=== PATIENT | female | born 2000 | race Caucasian/White ===

== ENCOUNTER 2020-06-20 11:06 | Emergency (ER) | payer OTHER ==
[~2020-06-20] VITALS: Ht 152.4 cm; Wt 39.3 kg
[2020-06-20] MEDS ORDERED: MULTTAB20 PO (11:19)
[2020-06-20] MEDS ORDERED: ZOLO50TA PO (11:19)
[2020-06-20] MEDS ORDERED: ZOFR4TAB16 PO (12:00)
[2020-06-20] MEDS ORDERED: ONDANSETRON 4MG/2ML VIAL IV ONE (12:30)
[2020-06-20] MEDS ORDERED: NS 1,000 ML IV ONE (12:30)
[2020-06-20 12:51] LABS: BASO % 0.2 % (0.0-1.0); EOS % 0.4 % (0.0-3.0); HEMATOCRIT 39.6 % (36.0-47.0); LYMPH # 2.2 10^3/uL (1.5-5.0); MEAN CORPUSCULAR HEMOGLOBIN 30.4 pg (27.0-33.0); MEAN CORPUSCULAR HGB CONC 32.8 g/dl (32.0-36.5); MEAN CORPUSCULAR VOLUME 92.7 fl (80.0-96.0); MONO # 0.5 10^3/uL (0.0-0.8); MONO % 5.2 % (0.0-5.0); NEUTROPHILS # 6.3 10^3/uL (1.5-8.5); PLATELET COUNT, AUTOMATED 330 10^3/uL (150-450); RED BLOOD COUNT 4.27 10^6/uL (4.00-5.40)
[2020-06-20 12:55] LABS: APPEARANCE, URINE CLEAR (CLEAR); BACTERIA, URINE AUTO NEGATIVE (NEGATIVE); BILIRUBIN, URINE AUTO NEGATIVE (NEGATIVE); BLOOD, URINE BLOOD NEGATIVE (NEGATIVE); COLOR, URINE YELLOW (YELLOW); GLUCOSE, URINE (UA) AUTO NEGATIVE (NEGATIVE); KETONE, URINE AUTO 2+ mg/dL (NEGATIVE); LEUKOCYTE ESTERASE, URINE AUTO NEGATIVE (NEGATIVE); MUCUS, URINE SMALL (NEGATIVE); NITRITE, URINE AUTO NEGATIVE (NEGATIVE); PROTEIN, URINE AUTO NEGATIVE (NEGATIVE); RBC, URINE AUTO 1 /HPF (0-3); SPECIFIC GRAVITY URINE AUTO 1.026 (1.002-1.035); SQUAMOUS EPITHELIAL CELL UR AU 1 /HPF (0-6); UROBILINOGEN, URINE AUTO 0.2 mg/dL (0.0-2.0); WBC, URINE AUTO 0 /HPF (0-3)
[2020-06-20 13:35] LABS: ALBUMIN 4.5 GM/DL (3.2-5.2); ALT/SGPT 12 U/L (12-78); BILIRUBIN,DIRECT 0.2 MG/DL (0.0-0.2); BILIRUBIN,TOTAL 0.5 MG/DL (0.2-1.0); BLOOD UREA NITROGEN 13 MG/DL (7-18); CARBON DIOXIDE LEVEL 21 MEQ/L (21-32); CHLORIDE LEVEL 106 MEQ/L (98-107); CK-MB VALUE MASS < 1.0 NG/ML (<3.6); CPK CREATINE PHOSPHOKINASE 113 U/L (26-192); CREATININE FOR GFR 0.69 MG/DL (0.55-1.30); GLOMERULAR FILTRATION RATE > 60.0 (>60); GLUCOSE, FASTING 91 MG/DL (70-100); HCG, SERUM QUANTITATIVE 14901 MIU/ML; LIPASE 157 U/L (73-393); MB/CK RELATIVE INDEX 0.88 (< OR =4); POTASSIUM SERUM 3.9 MEQ/L (3.5-5.1); SODIUM LEVEL 137 MEQ/L (136-145); TOTAL PROTEIN 7.8 GM/DL (6.4-8.2); TROPONIN I < 0.02 NG/ML (< 0.10)
--- NOTE | 2020-06-20 15:08 | REP ---
INDICATION: n, v abdominal pain COMPARISON: None. TECHNIQUE: Transabdominal and transvaginal 1st trimester obstetrical ultrasound with color Doppler evaluation. FINDINGS: Gestational sac with yolk sac and pole identified. [place]-rump length of 2.7 mm corresponds to 5 weeks 6 days gestational age with no discernible cardiac activity. IMPRESSION: measuring at 5 weeks 6 days gestational age. No discernible cardiac activity noted. Differential diagnosis includes early as well as demise. Correlation with serial HCG levels and repeat ultrasound may be warranted. <Electronically signed by Syed Woodruff > 06/20/20 [id number]
[2020-06-20] MEDS ORDERED: DICL10TA PO (15:17)
[2020-06-20 15:42] VITALS: BP 96/54
--- NOTE | 2020-06-20 19:20 | ECGEPIP ---
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
== END 2020-06-20 15:55 | disposition home or self-care (01) ==
LOC: M ED 11:06
DX: O21.9 Vomiting of pregnancy, unspecified (principal); O99.341 Other mental disorders complicating pregnancy, first trimester; F41.9 Anxiety disorder, unspecified; O99.611 Diseases of the digestive system complicating pregnancy, first trimester; K21.9 Gastro-esophageal reflux disease without esophagitis; Z3A.01 Less than 8 weeks gestation of pregnancy; Z79.899 Other long term (current) drug therapy
CPT/HCPCS: 76801; 76817; 80048; 80076; 81001; 82550; 82553; 83690; 84484; 84702; 85025; 87086; 93005; 93976; 96361; 96374; 99284; J2405

== ENCOUNTER 2020-06-23 11:52 | Emergency (ER) | payer OTHER ==
[~2020-06-23] VITALS: Ht 152.4 cm; Wt 39.2 kg
[~2020-06-23 11:52] MED LIST: DICL10TA PO; MULTTAB20 PO; ZOFR4TAB16 PO; ZOLO50TA PO
[2020-06-23] MEDS ORDERED: NS 1,000 ML IV ONE (12:45)
[2020-06-23] MEDS ORDERED: METOCLOPRAMIDE INJ 10MG/2ML VIAL (J2765 PER 1) IV ONE (12:45)
[2020-06-23 13:56] LABS: BLOOD UREA NITROGEN 11 MG/DL (7-18); CARBON DIOXIDE LEVEL 22 MEQ/L (21-32); CHLORIDE LEVEL 106 MEQ/L (98-107); CREATININE FOR GFR 0.61 MG/DL (0.55-1.30); GLOMERULAR FILTRATION RATE > 60.0 (>60); GLUCOSE, FASTING 81 MG/DL (70-100); HCG, SERUM QUANTITATIVE 26797 MIU/ML; POTASSIUM SERUM 3.5 MEQ/L (3.5-5.1); SODIUM LEVEL 136 MEQ/L (136-145)
[2020-06-23] MEDS ORDERED: UNIS25TA3 PO (14:10)
[2020-06-23] MEDS ORDERED: PYRI25TA2 PO (14:10)
[2020-06-23 14:35] VITALS: BP 112/53
== END 2020-06-23 15:16 | disposition home or self-care (01) ==
LOC: M ED 11:52
DX: O21.9 Vomiting of pregnancy, unspecified (principal); O99.341 Other mental disorders complicating pregnancy, first trimester; F41.9 Anxiety disorder, unspecified; Z79.899 Other long term (current) drug therapy; Z3A.01 Less than 8 weeks gestation of pregnancy
CPT/HCPCS: 80048; 84702; 96361; 96374; 99284; J2765

== ENCOUNTER 2020-07-08 18:15 | Inpatient (IN) | payer OTHER ==
[~2020-07-08] VITALS: Ht 152.4 cm; Wt 40.0 kg
[2020-07-08] MEDS: KCL 10MEQ/100ML SWI (KRUN) 10 MEQ in IV 1 EA IV ONE (01:50)
[~2020-07-08 18:15] MED LIST changes: +PYRI25TA2 PO; +UNIS25TA3 PO
[2020-07-08] MEDS ORDERED: NS 1,000 ML IV ONE (19:00)
[2020-07-08] MEDS ORDERED: ONDANSETRON 4MG/2ML VIAL IV ONE (19:00)
[2020-07-08 19:08] LABS: BASO % 0.2 % (0.0-1.0); EOS % 0.1 % (0.0-3.0); HEMATOCRIT 36.8 % (36.0-47.0); HEMOGLOBIN 12.6 g/dl (12.0-15.5); MEAN CORPUSCULAR HEMOGLOBIN 30.9 pg (27.0-33.0); MEAN CORPUSCULAR HGB CONC 34.2 g/dl (32.0-36.5); MEAN CORPUSCULAR VOLUME 90.2 fl (80.0-96.0); MONO # 0.6 10^3/uL (0.0-0.8); MONO % 3.4 % (0.0-5.0); NEUTROPHILS # 14.3 10^3/uL (1.5-8.5); NEUTROPHILS % 83.8 % (36.0-66.0); PLATELET COUNT, AUTOMATED 364 10^3/uL (150-450); RED BLOOD COUNT 4.08 10^6/uL (4.00-5.40)
[2020-07-08 19:18] LABS: INR 1.04; PROTHROMBIN TIME 13.8 SECONDS (12.5-14.3)
[2020-07-08 19:19] LABS: PARTIAL THROMBOPLASTIN TIME 26.4 SECONDS (24.2-38.5)
[2020-07-08] MEDS ORDERED: MULTIVITAMIN -ADULT INJECTION 10 ML, THIAMINE INJection 100 MG, FOLIC ACID 1 MG in NS 1... IV ONE ×2 (19:30→21:00)
[2020-07-08] MEDS ORDERED: FAMOTIDINE INJ 20MG/2ML VIAL (S0028 PER 1) IVP ONE (19:30)
[2020-07-08] MEDS ORDERED: PREN29CH2 PO (19:39)
[2020-07-08] MEDS ORDERED: ONDA-83 PO (19:39)
[2020-07-08] MEDS ORDERED: UNIS25TA3 PO (19:39)
[2020-07-08] MEDS ORDERED: PYRI25TA2 PO (19:39)
[2020-07-08] MEDS ORDERED: SERT50TA29 PO (19:39)
[2020-07-08] MEDS ORDERED: FAMOTIDINE IV BAG 20 MG in IV 1 EA IV ONE (19:45)
[2020-07-08 19:55] LABS: ALBUMIN 4.6 GM/DL (3.2-5.2); ALT/SGPT 35 U/L (12-78); BILIRUBIN,DIRECT 0.2 MG/DL (0.0-0.2); BILIRUBIN,TOTAL 0.5 MG/DL (0.2-1.0); BLOOD UREA NITROGEN 14 MG/DL (7-18); CALCIUM LEVEL 10.2 MG/DL (8.5-10.1); CARBON DIOXIDE LEVEL 19 MEQ/L (21-32); CHLORIDE LEVEL 105 MEQ/L (98-107); CK-MB VALUE MASS 1.2 NG/ML (<3.6); CPK CREATINE PHOSPHOKINASE 91 U/L (26-192); CREATININE FOR GFR 0.81 MG/DL (0.55-1.30); GLOMERULAR FILTRATION RATE > 60.0 (>60); GLUCOSE, FASTING 117 MG/DL (70-100); HCG, SERUM QUANTITATIVE 154907 MIU/ML; LIPASE 156 U/L (73-393); MB/CK RELATIVE INDEX 1.32 (< OR =4); POTASSIUM SERUM 3.4 MEQ/L (3.5-5.1); SODIUM LEVEL 137 MEQ/L (136-145); TOTAL PROTEIN 8.4 GM/DL (6.4-8.2); TROPONIN I < 0.02 NG/ML (< 0.10)
[2020-07-08 20:52] LABS: APPEARANCE, URINE HAZY (CLEAR); BACTERIA, URINE AUTO 1+ (NEGATIVE); BILIRUBIN, URINE AUTO NEGATIVE (NEGATIVE); BLOOD, URINE BLOOD NEGATIVE (NEGATIVE); COLOR, URINE YELLOW (YELLOW); GLUCOSE, URINE (UA) AUTO 1+ mg/dL (NEGATIVE); KETONE, URINE AUTO 2+ mg/dL (NEGATIVE); LEUKOCYTE ESTERASE, URINE AUTO NEGATIVE (NEGATIVE); MUCUS, URINE SMALL (NEGATIVE); NITRITE, URINE AUTO NEGATIVE (NEGATIVE); PROTEIN, URINE AUTO 1+ mg/dL (NEGATIVE); RBC, URINE AUTO 3 /HPF (0-3); SPECIFIC GRAVITY URINE AUTO 1.024 (1.002-1.035); SQUAMOUS EPITHELIAL CELL UR AU 2 /HPF (0-6); UROBILINOGEN, URINE AUTO 0.2 mg/dL (0.0-2.0); WBC, URINE AUTO 1 /HPF (0-3)
[2020-07-08 21:13] LABS: AMPHETAMINES LEVEL URINE NEGATIVE (NEGATIVE); BARBITURATES URINE NEGATIVE (NEGATIVE); BENZODIAZEPINES URINE NEGATIVE (NEGATIVE); CANNABINOIDS URINE POSITIVE (NEGATIVE); COCAINE METABOLITE URINE NEGATIVE (NEGATIVE); METHADONE URINE NEGATIVE (NEGATIVE); OPIATES URINE NEGATIVE (NEGATIVE); PHENCYCLIDINE URINE NEGATIVE (NEGATIVE)
--- NOTE | 2020-07-08 21:24 | REPVR ---
PROCEDURE INFORMATION: Exam: US First Trimester, Transabdominal Exam date and time: 07/08/20 (8:04pm) Age: 20 years old Clinical indication: female. Nausea, vomiting, pain, cramping. Gestational age (in weeks): 8 weeks. TECHNIQUE: Imaging protocol: Real-time transabdominal obstetrical ultrasound of the maternal pelvis and a first trimester , less than 14 weeks 0 days, with image documentation. COMPARISON: US OB of 06/20/20 FINDINGS: The LMP is reported to be: 05/12/20 An early live intrauterine gestation is identified, approx. 8 weeks 3 days gestational age, based on the crown-rump length (CRL = 19 mm). Based on the CRL measurement, the GINO = 02[birth year]14/21. Close correlation with the menstrual history is noted. Appropriate interval growth is seen over the past 3 weeks. heart rate is recorded at 169 bpm. A yolk sac is visualized. The maternal right ovary measures 2.8 x 2.0 x 1.8 cm in dimensions. Simple right ovarian cyst (1.3 x 2.3 x 1.7 cm size) (1.8 cm avg. size). The left ovary is not clearly identified. No free pelvic fluid is appreciated. No solid adnexal mass. IMPRESSION: A single live IUP is seen, at 8 weeks 3 days gestational age (based on the CRL). heartbeat is recorded. Appropriate interval growth has occurred over the past 3 weeks. Right ovarian cyst (1.8 cm avg. size). The left ovary is not clearly visualized. No free pelvic fluid is noted. Electronically signed by: Caroline Monaco On 07/08/2020 21:23:41 PM
[2020-07-08 21:40] LABS: MAGNESIUM LEVEL 1.8 MG/DL (1.8-2.4)
--- NOTE | 2020-07-08 21:42 | HPEPDOC ---
[facility] Medical History & Physical Date of Admission Jul 08, 2020 Date of Service: Jul 08, 2020 Other Provider Leo DEL ANGEL History and Physical TIME OF SERVICE: 9:45 PM CHIEF COMPLAINT: Vomiting HISTORY OF PRESENT ILLNESS: This 20-year-old G2 A1 P1 (8 weeks 2 days), has been having episodes of nausea for the last few weeks that usually resolves as the day goes on. This morning at around 5:30 AM she developed nausea along with vomiting that continued throughout the day. At around 6 PM she developed streaks of blood in the vomit; as time progressed the vomit became dark brown in color. She was unable to keep any liquids, solids and even her SL Zofran down therefore she decided to come to also for evaluation. She reported having chills and upper abdominal and mid chest pain that occurred during and after vomiting. Yesterday evening she had one episode of "diarrhea" when she went to the bathroom and reported having another episode this morning. She denied having fecal incontinence. Denied having fevers, denied eating food that should not cooked, denied having change in the small bowel or the color of her urine, and denied having any pain with urination. JUAN Jiménez discussed the patient's case with OB carbon grinder and who recommended admission under the general medicine service. REVIEW OF SYSTEMS: 12 point review of systems negative except as listed in HPI PAST MEDICAL/ SURGICAL HISTORY: D&C 2 months ago after miscarriage. Anxiety SOCIAL HISTORY: She doesn't smoke. She quit drinking when she found that she was . Quit using THC about 2 weeks ago FAMILY HISTORY: Her father has pancreatitis. Her sister has anxiety ALLERGIES: Please see below. HOME MEDICATIONS: Please see below. PHYSICAL EXAMINATION: VITAL SIGNS: Please see below. GEN: slim build/ well developed/ NAD INTEGUMENT: not flushed/ not jaundice HEENT: lips acyanotic /mucus membranes moist and pink / sclera anicteric CVS: RRR/NMRG/ radial pulses intact / no lower extremity edema LUNGS: able to speak full sentences without stopping to take a breath / no coughing / lungs are clear to auscultation bilaterally on room air ABDOMEN: Contour (flat) / soft & not tender with palpation MSK/EXTREMITIES: NCAT / range of motion intact in all 4 extremities NEURO: CN 2-12 are grossly intact / speech is not dysarthric PSYCH: alert and oriented to person place and time/ able to understand and follow all commands LABORATORY DATA: Laboratory Tests 2 07/08/20 18:51: Immature Granulocyte % (Auto) 0.5, Neutrophils (%) (Auto) 83.8H, Lymphocytes (%) (Auto) 12.0L, Monocytes (%) (Auto) 3.4, Eosinophils (%) (Auto) 0.1, Basophils (%) (Auto) 0.2, Neutrophils # (Auto) 14.3H, Lymphocytes # (Auto) 2.0, Monocytes # (Auto) 0.6, Eosinophils # (Auto) 0.0, Basophils # (Auto) 0.0, Nucleated Red Blood Cells % (auto) 0.0, Prothrombin Time 13.8, Prothromb Time International Ratio 1.04, Activated Partial Thromboplast Time 26.4, Anion Gap 13, Glomerular Filtration Rate > 60.0, Calcium Level 10.2H, Total Bilirubin 0.5, Direct Bilirubin 0.2, Aspartate Amino Transf (AST/SGOT) 22, Alanine Aminotransferase (ALT/SGPT) 35, Alkaline Phosphatase 39L, Total Creatine Kinase 91, Creatine Kinase MB 1.2, Creatine Kinase MB Relative Index 1.32, Troponin I < 0.02, Total Protein 8.4H, Albumin 4.6, Albumin/Globulin Ratio 1.2, Lipase 156, Human Chorionic Gonadotropin, Quant [id number] 07/08/20 20:35: Urine Color YELLOW, Urine Appearance HAZY, Urine pH 6.0, Urine Specific [place] 1.024, Urine Protein 1+H, Urine Glucose (Auto)(UA) 1+H, Urine Ketones (Auto) 2+H, Urine Blood NEGATIVE, Urine Nitrite NEGATIVE, Urine Bilirubin NEGATIVE, Urine Urobilinogen 0.2, Urine Leukocyte Esterase (Auto) NEGATIVE, Urine WBC (Auto) 1, Urine RBC (Auto) 3, Urine Hyaline Casts (Auto) 0, Urine Bacteria (Auto) 1+H, Urine Squamous Epithelial Cells 2, Urine Mucus (Auto) SMALL, Urine Sperm (Auto) , Urine Opiates Screen NEGATIVE, Urine Methadone Screen NEGATIVE, Urine Barbiturates Screen NEGATIVE, Urine Phencyclidine Screen NEGATIVE, Urine Amphetamines Screen NEGATIVE, Urine Benzodiazepines Screen NEGATIVE, Urine Cocaine Metabolite Screen NEGATIVE, Urine Cannabinoids Screen POSITIVEH 07/08/20 20:36: Coronavirus (COVID-19)(PCR) NEGATIVE IMAGING: Transabdominal US "IMPRESSION: A single live IUP is seen, at 8 weeks 3 days gestational age (based on the CRL). heartbeat is recorded. Appropriate interval growth has occurred over the past 3 weeks. Right ovarian cyst (1.8 cm avg. size). The left ovary is not clearly visualized. No free pelvic fluid is noted." MICROBIOLOGY: Please see below. ASSESSMENT: is a 20-year-old G2, P2 with history of anxiety who presented w c/o of n/v and loose stools; she will be admitted for evaluation of hematemesis. PLAN: 1. Hematemesis N/V likely bc she is . With the presence of loose stools, it is also possible that she has a viral infection. Hematemesis possibly 2/2 small Natalia Blas tear A Banana bag was ordered in the ER Plan: admit to medical floor/ CLD / will avoid Zofran and PPI because she is / start Ondansetron 2mg IV Q4H/ f/u serial Hg / will ask the day time team to consult to determine if she needs EGD 2. Hypokalemia Plan: replete K & f/u Mag 3. Anxiety Plan: c/w home meds DVT px w SCDs Dispo: home after at least 2 midnight's stay LATE ENTRY 07/09/20 @ 440AM The patient's Hg has dropped significantly #Acute blood loss anemia Plan: f/u iron studies / per d/w will f/u Hg at noon and ask the day time team to consider Gen Surg consult if it is still trending down Home Medications Scheduled No115/Iron/Folic Acid ( 19 Chewable Tablet) 1 Each Tab.chew, 1 CHW PO QHS Sertraline HCl (Sertraline HCl) 50 Mg Tablet, 50 MG PO QHS Scheduled PRN Doxylamine Succinate (Unisom Sleep Aid) 25 Mg Tablet, 12.5 MG PO BID PRN for NAUSEA OR VOMITING Ondansetron HCl (Ondansetron HCl) 4 Mg Tablet, 4 MG PO Q6H PRN for NAUSEA OR VOMITING Pyridoxine HCl (Vitamin B6) (Vitamin B-6) 25 Mg Tablet, 12.5 MG PO BID PRN for NAUSEA OR VOMITING Allergies Coded Allergies: No Known Allergies (Unverified , 06/20/20) A-FIB/CHADSVASC A-FIB History Current/History of A-Fib/PAF?: No Current PO Anticoag Therapy: No ELISE MENDOZA MD Jul 08, 2020 21:42
[2020-07-08 23:42] LABS: CK-MB VALUE MASS < 1.0 NG/ML (<3.6); CPK CREATINE PHOSPHOKINASE 91 U/L (26-192); TROPONIN I < 0.02 NG/ML (< 0.10)
[2020-07-09 00:22] LABS: HEMATOCRIT 30.5 % (36.0-47.0)
[2020-07-09 00:29] VITALS: BP 100/54
[2020-07-09 00:30] LABS: HEMOGLOBIN 10.5 g/dl (12.0-15.5)
[2020-07-09] MEDS: KCL 10MEQ/100ML SWI (KRUN) 10 MEQ in IV 1 EA IV ONE (01:00)
[2020-07-09] MEDS: SERTRALINE HCL 50 MG TAB PO SCH ×2 (01:02→20:44)
[2020-07-09] MEDS: ONDANSETRON 4MG/2ML VIAL IV PRN ×2 (03:39→09:20)
[2020-07-09 04:00] VITALS: BP 109/60
[2020-07-09 04:36] LABS: HEMATOCRIT 31.3 % (36.0-47.0); HEMOGLOBIN 10.5 g/dl (12.0-15.5); MEAN CORPUSCULAR HEMOGLOBIN 31.2 pg (27.0-33.0); MEAN CORPUSCULAR HGB CONC 33.5 g/dl (32.0-36.5); MEAN CORPUSCULAR VOLUME 92.9 fl (80.0-96.0); PLATELET COUNT, AUTOMATED 283 10^3/uL (150-450); RED BLOOD COUNT 3.37 10^6/uL (4.00-5.40); WHITE BLOOD COUNT 14.6 10^3/uL (4.0-10.0)
[2020-07-09 05:11] LABS: BLOOD UREA NITROGEN 11 MG/DL (7-18); CALCIUM LEVEL 7.8 MG/DL (8.5-10.1); CARBON DIOXIDE LEVEL 20 MEQ/L (21-32); CHLORIDE LEVEL 108 MEQ/L (98-107); CREATININE FOR GFR 0.46 MG/DL (0.55-1.30); FERRITIN 85 NG/ML (8-252); GLOMERULAR FILTRATION RATE > 60.0 (>60); GLUCOSE, FASTING 85 MG/DL (70-100); IRON (FE) 76 UG/DL (50-170); POTASSIUM SERUM 3.8 MEQ/L (3.5-5.1); SODIUM LEVEL 140 MEQ/L (136-145); TOTAL IRON BINDING CAPACITY 245 UG/DL (250-450)
--- NOTE | 2020-07-09 07:58 | ECGEPIP ---
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
[2020-07-09 08:00] VITALS: BP 101/63
[2020-07-09] MEDS ORDERED: FAMOTIDINE 20 MG TAB PO SCH (09:00)
[2020-07-09] MEDS ORDERED: ACETAMINOPHEN TAB 650MG DOSE (2X325MG) PO PRN (09:00)
[2020-07-09] MEDS ORDERED: CALCIUM CARBONATE 500 MG CHEW U/D PO PRN (10:15)
[2020-07-09 10:28] LABS: FOLATE > 24.0 NG/ML (>5.4); VITAMIN B12 LEVEL 825 PG/ML (247-911)
[2020-07-09] MEDS ORDERED: ONDANSETRON 4MG/2ML VIAL IV PRN (10:30)
--- NOTE | 2020-07-09 10:50 | CR.PDOC ---
General Date of Consultation: Jul 09, 2020 Consultation OBGYN Consultation Sharon Saez is a 20 yo at 8+1 weeks gestation by LMP of 12May2020 c/w 8 week US who was admitted by the hospitalist service yesterday evening for PO intolerance and blood streaked emesis. Initially there was concern for a potential Natalia-Blas tear, but her bloody vomitus has not continued and she has remained hemodynamically stable. She reports having nausea and vomiting throughout her entire . She has taken doxylamine and pyridoxine with only mild relief of symptoms. She came to the hospital yesterday because she was unable to tolerate solids or liquids for the preceding 24 hours. This morning she reports still feeling nauseous but otherwise well. She denies any fevers/chills, SOB, chest pain, dysuria, vaginal bleeding, or diarrhea. Her last episode of emesis was last night. OBHX: , G1- SAB requiring D+C, G2 - current GYNHX: Regular menstrual cycles when not . No STD or abnormal pap history. PMHX: Depression/Anxiety PSHX: Suction dilation and curettage Meds: Sertraline, PNVs, Doxylamine, Pyridoxine Social: Denies current tobacco or etoh use. Stopped etoh use when discovered she was . Reports she recently quit using marijuana. All: None FamHx: Non contributory Exam: Vitals - VSS, afebrile, normotensive, non tachycardic General - Laying in bed, pleasant and conversant, NAD Abdomen - Soft, nondistended. Mild diffuse tenderness to palpation Extremities - No edema Labs: 2+ ketones on UA, UC pending Initial WBC 17 --> Most recent 14.6 Most recent H/H: 10.5/31.3. Platelets normal 140/3.8--108/20--11/0.46<85 AST/ALT: 22/35 Calcium: 7.8 Rads: Formal first trimester US demonstrated a viable SIUP at ~8 weeks gestation. GINO c/w LMP dating. A/P 20 yo at 8+1 weeks gestation admitted with bloody emesis in the setting of persistent n/v and PO intolerance. -Diagnosis of hyperemesis gravidarum is likely, though this is most strictly defined as a >5% loss of weight compared to pre weight in the setting of electrolyte abnormalities and persistent n/v not attributable to any other cause. -Bloody emesis has resolved, and there doesn't appear to be any need for acute intervention. Though this will need to closely monitored. -Would recommend NPO status and scheduled IV and LA antiemetics. Scheduled IV ondansetron, IV reglan, and LA promethazine have good efficacy. In refractory cases a scopolamine patch can be considered. -Ms. Saez is amenable to rectal promethazine suppositories and I would encourage this. -Would recommend obtaining daily electrolyte levels with replacement of K and Mag as needed. Until she is PO tolerant I would continue IV maintenance fluids. -Dispo is pending advancement of diet. I would not transition to clear liquids until she hasn't vomited for >12 hours. Once she is tolerating a regular diet she can be discharged home with close follow up in our office. -Appreciate the consultation. Roderick Love, DO Vital Signs/I&O Vital Signs Date Time Temp Pulse Resp B/P (MAP) Pulse Ox O2 Delivery O2 Flow Rate FiO2 07/09/20 08:00 98.6 63 18 101/63 (76) 98 Room Air I&O- Last 24 Hours up to 6 AM 07/09/20 06:00 Intake Total 2011.2 ml Output Total 0 ml Balance 2011.2 ml Laboratory Data Labs 24H Laboratory Tests 2 07/08/20 18:51: Immature Granulocyte % (Auto) 0.5, Neutrophils (%) (Auto) 83.8H, Lymphocytes (%) (Auto) 12.0L, Monocytes (%) (Auto) 3.4, Eosinophils (%) (Auto) 0.1, Basophils (%) (Auto) 0.2, Neutrophils # (Auto) 14.3H, Lymphocytes # (Auto) 2.0, Monocytes # (Auto) 0.6, Eosinophils # (Auto) 0.0, Basophils # (Auto) 0.0, Nucleated Red Blood Cells % (auto) 0.0, Prothrombin Time 13.8, Prothromb Time International Ratio 1.04, Activated Partial Thromboplast Time 26.4, Anion Gap 13, Glomerular Filtration Rate > 60.0, Calcium Level 10.2H, Magnesium Level 1.8, Total Bilirubin 0.5, Direct Bilirubin 0.2, Aspartate Amino Transf (AST/SGOT) 22, Alanine Aminotransferase (ALT/SGPT) 35, Alkaline Phosphatase 39L, Total Creatine Kinase 91, Creatine Kinase MB 1.2, Creatine Kinase MB Relative Index 1.32, Troponin I < 0.02, Total Protein 8.4H, Albumin 4.6, Albumin/Globulin Ratio 1.2, Lipase 156, Human Chorionic Gonadotropin, Quant [id number] 07/08/20 20:35: Urine Color YELLOW, Urine Appearance HAZY, Urine pH 6.0, Urine Specific [place] 1.024, Urine Protein 1+H, Urine Glucose (Auto)(UA) 1+H, Urine Ketones (Auto) 2+H, Urine Blood NEGATIVE, Urine Nitrite NEGATIVE, Urine Bilirubin NEGATIVE, Urine Urobilinogen 0.2, Urine Leukocyte Esterase (Auto) NEGATIVE, Urine WBC (Auto) 1, Urine RBC (Auto) 3, Urine Hyaline Casts (Auto) 0, Urine Bacteria (Auto) 1+H, Urine Squamous Epithelial Cells 2, Urine Mucus (Auto) SMALL, Urine Sperm (Auto) , Urine Opiates Screen NEGATIVE, Urine Methadone Screen NEGATIVE, Urine Barbiturates Screen NEGATIVE, Urine Phencyclidine Screen NEGATIVE, Urine Amphetamines Screen NEGATIVE, Urine Benzodiazepines Screen NEGATIVE, Urine Cocaine Metabolite Screen NEGATIVE, Urine Cannabinoids Screen POSITIVEH 07/08/20 20:36: Coronavirus (COVID-19)(PCR) NEGATIVE 07/08/20 22:58: Total Creatine Kinase 91, Creatine Kinase MB < 1.0, Creatine Kinase MB Relative Index 1.10, Troponin I < 0.02 07/09/20 04:14: Nucleated Red Blood Cells % (auto) 0.0, Anion Gap 12, Glomerular Filtration Rate > 60.0, Calcium Level 7.8#L, Iron Level 76, Total Iron Binding Capacity 245L, Transferrin % Saturation 31.0, Ferritin 85, Vitamin B12 Level 825, Folate > 24.0 CBC/BMP Laboratory Tests 07/08/20 18:51 07/09/20 00:12 07/09/20 04:14 Microbiology Microbiology 07/08/20 Urine Culture, Received Pending Allergies Coded Allergies: No Known Allergies (Unverified , 06/20/20) Home Medications Scheduled No115/Iron/Folic Acid ( 19 Chewable Tablet) 1 Each Tab.chew, 1 CHW PO QHS, (Reported) Sertraline HCl (Sertraline HCl) 50 Mg Tablet, 50 MG PO QHS, (Reported) Scheduled PRN Doxylamine Succinate (Unisom Sleep Aid) 25 Mg Tablet, 12.5 MG PO BID PRN for NAUSEA OR VOMITING, (Reported) Ondansetron HCl (Ondansetron HCl) 4 Mg Tablet, 4 MG PO Q6H PRN for NAUSEA OR VOMITING, (Reported) Pyridoxine HCl (Vitamin B6) (Vitamin B-6) 25 Mg Tablet, 12.5 MG PO BID PRN for NAUSEA OR VOMITING, (Reported) RODERICK LOVE DO Jul 09, 2020 10:50
[2020-07-09 12:00] VITALS: BP 106/53
[2020-07-09 12:18] LABS: HEMATOCRIT 31.6 % (36.0-47.0); HEMOGLOBIN 10.7 g/dl (12.0-15.5)
[2020-07-09] MEDS: METOCLOPRAMIDE INJ 10MG/2ML VIAL (J2765 PER 1) IV SCH ×2 (12:35→18:09)
[2020-07-09] MEDS: NS 1,000 ML IV SCH (12:36)
[2020-07-09] MEDS: FAMOTIDINE IV BAG 20 MG in IV 1 EA IV SCH (12:36)
--- NOTE | 2020-07-09 15:25 | IPNPDOC ---
Date Seen The patient was seen on 07/09/20. Progress Note SUBJECTIVE: Discussed case with Dr. Love (document processor) who consulted and made suggestions. Patient continues to have nausea so stopped CLD and made NPO until patient has not had vomiting for >12H. She denies any bleeding, lightheadedness, vision changes, headache, increased weakness. OBJECTIVE: PHYSICAL EXAMINATION: VITAL SIGNS: Please see below. GEN: slim build/ well developed/ NAD INTEGUMENT: not flushed/ not jaundice HEENT: lips acyanotic /mucus membranes moist and pink / sclera anicteric CVS: RRR/NMRG/ radial pulses intact / no lower extremity edema LUNGS: able to speak full sentences without stopping to take a breath / no coughing / lungs are clear to auscultation bilaterally on room air ABDOMEN: Contour (flat) / soft & not tender with palpation MSK/EXTREMITIES: NCAT / range of motion intact in all 4 extremities NEURO: CN 2-12 are grossly intact / speech is not dysarthric PSYCH: alert and oriented to person place and time/ able to understand and follow all commands LABORATORY DATA: Please see below IMAGING: Transabdominal US: A single live IUP is seen, at 8 weeks 3 days gestational age (based on the CRL). heartbeat is recorded. Appropriate interval growth has occurred over the past 3 weeks. Right ovarian cyst (1.8 cm avg. size). The left ovary is not clearly visualized. No free pelvic fluid is noted." MICROBIOLOGY: Please see below. ASSESSMENT: is a 20-year-old G2, P2 with history of anxiety who presented w c/o of n/v and loose stools who was admitted for evaluation of hematemesis. PLAN: Hematemesis likely 2/2 to hyperemesis gravidarum -No longer having bloody emesis and is unlikely that this was 2/2 to Natalia Barry tear. -H/H is stable, continue to watch closely -Changing back to NPO from CLD per Ob recommendations. When vomiting resolved for >12 H, then advance towards a regular diet -Will c/w IVFs at 100 cc/hr, reglan TID, zofran PRN. Can consider scopalamine patch or rectal promethazine. -Replace lytes PRN -cyber operator consulted, please refer to note Acute blood loss anemia -No episodes of bleeding overnight -H/H dropped from admission; however, this could be dilutional as well -H/H steady throughout today -F/u H/H as scheduled -Transfuse PRN Hypokalemia, acute- resolved -F/u AM labs Anxiety -Stable -c/w home meds DVT px: - SCDs DISPOSITION: Advance diet as tolerated with n/v. Will need close follow up with document processor after discharge. VS, I&O, 24H, Fishbone Vital Signs/I&O Vital Signs Date Time Temp Pulse Resp B/P (MAP) Pulse Ox O2 Delivery O2 Flow Rate FiO2 07/09/20 12:00 98.7 60 18 106/53 (70) 100 Room Air I&O- Last 24 Hours up to 6 AM 07/09/20 06:00 Intake Total 2011.2 ml Output Total 0 ml Balance 2011.2 ml Laboratory Data 24H LABS Laboratory Tests 2 07/08/20 18:51: Immature Granulocyte % (Auto) 0.5, Neutrophils (%) (Auto) 83.8H, Lymphocytes (%) (Auto) 12.0L, Monocytes (%) (Auto) 3.4, Eosinophils (%) (Auto) 0.1, Basophils (% ) (Auto) 0.2, Neutrophils # (Auto) 14.3H, Lymphocytes # (Auto) 2.0, Monocytes # (Auto) 0.6, Eosinophils # (Auto) 0.0, Basophils # (Auto) 0.0, Nucleated Red Blood Cells % (auto) 0.0, Prothrombin Time 13.8, Prothromb Time International Ratio 1.04, Activated Partial Thromboplast Time 26.4, Anion Gap 13, Glomerular Filtration Rate > 60.0, Calcium Level 10.2H, Magnesium Level 1.8, Total Bilirubin 0.5, Direct Bilirubin 0.2, Aspartate Amino Transf (AST/SGOT) 22, Alanine Aminotransferase (ALT/SGPT) 35, Alkaline Phosphatase 39L, Total Creatine Kinase 91, Creatine Kinase MB 1.2, Creatine Kinase MB Relative Index 1.32, Troponin I < 0.02, Total Protein 8.4H, Albumin 4.6, Albumin/Globulin Ratio 1.2, Lipase 156, Human Chorionic Gonadotropin, Quant [id number] 07/08/20 20:35: Urine Color YELLOW, Urine Appearance HAZY, Urine pH 6.0, Urine Specific [place] 1.024, Urine Protein 1+H, Urine Glucose (Auto)(UA) 1+H, Urine Ketones (Auto) 2+H, Urine Blood NEGATIVE, Urine Nitrite NEGATIVE, Urine Bilirubin NEGATIVE, Urine Urobilinogen 0.2, Urine Leukocyte Esterase (Auto) NEGATIVE, Urine WBC ( Auto) 1, Urine RBC (Auto) 3, Urine Hyaline Casts (Auto) 0, Urine Bacteria (Auto) 1+H, Urine Squamous Epithelial Cells 2, Urine Mucus (Auto) SMALL, Urine Sperm (Auto) , Urine Opiates Screen NEGATIVE, Urine Methadone Screen NEGATIVE, Urine Barbiturates Screen NEGATIVE, Urine Phencyclidine Screen NEGATIVE, Urine Amphetamines Screen NEGATIVE, Urine Benzodiazepines Screen NEGATIVE, Urine Cocaine Metabolite Screen NEGATIVE, Urine Cannabinoids Screen POSITIVEH 07/08/20 20:36: Coronavirus (COVID-19)(PCR) NEGATIVE 07/08/20 22:58: Total Creatine Kinase 91, Creatine Kinase MB < 1.0, Creatine Kinase MB Relative Index 1.10, Troponin I < 0.02 07/09/20 04:14: Nucleated Red Blood Cells % (auto) 0.0, Anion Gap 12, Glomerular Filtration Rate > 60.0, Calcium Level 7.8#L, Iron Level 76, Total Iron Binding Capacity 245L, Transferrin % Saturation 31.0, Ferritin 85, Vitamin B12 Level 825, Folate > 24.0 CBC/BMP Laboratory Tests 07/08/20 18:51 07/09/20 00:12 07/09/20 04:14 07/09/20 11:56 Microbiology Microbiology 07/08/20 Urine Culture, Received Pending Current Medications Current Medications Medications (Trade) Dose Ordered Sig/Adi Route PRN Reason Start Time Stop Time Status Last Admin Dose Admin Acetaminophen (Tylenol Tab) 650 mg Q6HP PRN PO PAIN / FEVER 07/09/20 09:00 07/09/20 09:20 Calcium Carbonate (Tums) 500 mg TIDP PRN PO INDIGESTION 07/09/20 10:15 Famotidine (Pepcid) 20 mg DAILY PO 07/09/20 09:00 07/09/20 10:28 DC Famotidine 20 mg/ IV Miscellaneous Supplies 50 ml @ 100 mls/hr DAILY IV 07/09/20 09:00 07/09/20 12:36 Home Med (Med Rec Complete!) ASDIRECTED XX 12/15/20 19:45 07/08/20 19:42 DC Metoclopramide HCl (REGLAN INJection) 5 mg Q8H IV 07/09/20 11:00 07/09/20 12:35 Ondansetron HCl (ZOFRAN INJection) 2 mg Q4HP PRN IV NAUSEA OR VOMITING 07/08/20 23:15 07/09/20 10:28 DC 07/09/20 09:20 Ondansetron HCl (ZOFRAN INJection) 4 mg Q4HP PRN IV NAUSEA OR VOMITING 07/09/20 10:30 Sertraline HCl (Zoloft) 50 mg QHS PO 07/08/20 21:00 07/09/20 01:02 Sodium Chloride 1,000 ml @ 80 mls/hr [id number] IV 07/09/20 10:30 07/09/20 12:36 Allergies Coded Allergies: No Known Allergies (Unverified , 06/20/20) Mayte Mejia MD Jul 09, 2020 15:25
[2020-07-09 16:00] VITALS: BP 94/52
[2020-07-09 19:52] VITALS: BP 111/59
[2020-07-10] VITALS: BP 119/64
[2020-07-10] MEDS: NS 1,000 ML IV SCH (01:12)
[2020-07-10 04:00] VITALS: BP 110/60
[2020-07-10] MEDS: METOCLOPRAMIDE INJ 10MG/2ML VIAL (J2765 PER 1) IV SCH ×2 (04:22→11:12)
[2020-07-10 06:04] LABS: HEMATOCRIT 32.6 % (36.0-47.0); HEMOGLOBIN 10.8 g/dl (12.0-15.5); MEAN CORPUSCULAR HEMOGLOBIN 30.7 pg (27.0-33.0); MEAN CORPUSCULAR HGB CONC 33.1 g/dl (32.0-36.5); MEAN CORPUSCULAR VOLUME 92.6 fl (80.0-96.0); PLATELET COUNT, AUTOMATED 277 10^3/uL (150-450); RED BLOOD COUNT 3.52 10^6/uL (4.00-5.40); WHITE BLOOD COUNT 10.7 10^3/uL (4.0-10.0)
[2020-07-10 07:12] LABS: ALBUMIN 3.4 GM/DL (3.2-5.2); ALT/SGPT 24 U/L (12-78); BILIRUBIN,TOTAL 0.5 MG/DL (0.2-1.0); BLOOD UREA NITROGEN 8 MG/DL (7-18); CALCIUM LEVEL 8.4 MG/DL (8.5-10.1); CARBON DIOXIDE LEVEL 17 MEQ/L (21-32); CHLORIDE LEVEL 110 MEQ/L (98-107); CREATININE FOR GFR 0.48 MG/DL (0.55-1.30); GLOMERULAR FILTRATION RATE > 60.0 (>60); GLUCOSE, FASTING 78 MG/DL (70-100); POTASSIUM SERUM 3.7 MEQ/L (3.5-5.1); SODIUM LEVEL 136 MEQ/L (136-145); TOTAL PROTEIN 6.2 GM/DL (6.4-8.2)
[2020-07-10 08:00] VITALS: BP 108/62
[2020-07-10] MEDS: FAMOTIDINE IV BAG 20 MG in IV 1 EA IV SCH (08:30)
--- NOTE | 2020-07-10 13:08 | IPNPDOC ---
Date Seen The patient was seen on 07/10/20. Progress Note SUBJECTIVE: Discussed case with Dr. Love (social media project manager) who consulted and made suggestions. Patient continues to have nausea so stopped CLD and made NPO until patient has not had vomiting for >12H. She denies any bleeding, lightheadedness, vision changes, headache, increased weakness. OBJECTIVE: PHYSICAL EXAMINATION: VITAL SIGNS: Please see below. GEN: slim build/ well developed/ NAD INTEGUMENT: not flushed/ not jaundice HEENT: lips acyanotic /mucus membranes moist and pink / sclera anicteric CVS: RRR/NMRG/ radial pulses intact / no lower extremity edema LUNGS: able to speak full sentences without stopping to take a breath / no coughing / lungs are clear to auscultation bilaterally on room air ABDOMEN: Contour (flat) / soft & not tender with palpation MSK/EXTREMITIES: NCAT / range of motion intact in all 4 extremities NEURO: CN 2-12 are grossly intact / speech is not dysarthric PSYCH: alert and oriented to person place and time/ able to understand and follow all commands LABORATORY DATA: Please see below IMAGING: Transabdominal US: A single live IUP is seen, at 8 weeks 3 days gestational age (based on the CRL). heartbeat is recorded. Appropriate interval growth has occurred over the past 3 weeks. Right ovarian cyst (1.8 cm avg. size). The left ovary is not clearly visualized. No free pelvic fluid is noted." MICROBIOLOGY: Please see below. ASSESSMENT: is a 20-year-old G2, P2 with history of anxiety who presented w c/o of n/v and loose stools who was admitted for evaluation of hematemesis. PLAN: Hematemesis likely 2/2 to hyperemesis gravidarum -No longer having bloody emesis and is unlikely that this was 2/2 to Natalia Barry tear. -H/H is stable, continue to watch closely -Changing back to NPO from CLD per Ob recommendations. When vomiting resolved for >12 H, then advance towards a regular diet -Will c/w IVFs at 100 cc/hr, reglan TID, zofran PRN. Can consider scopalamine patch or rectal promethazine. -Replace lytes PRN -gate services supervisor consulted, please refer to note Acute blood loss anemia -No episodes of bleeding overnight -H/H dropped from admission; however, this could be dilutional as well -H/H steady throughout today -F/u H/H as scheduled -Transfuse PRN Hypokalemia, acute- resolved -F/u AM labs Anxiety -Stable -c/w home meds DVT px: - SCDs DISPOSITION: Advance diet as tolerated with n/v. Will need close follow up with social media project manager after discharge. VS, I&O, 24H, Fishbone Vital Signs/I&O Vital Signs Date Time Temp Pulse Resp B/P (MAP) Pulse Ox O2 Delivery O2 Flow Rate FiO2 07/10/20 08:00 98.2 77 16 108/62 (77) 100 Room Air I&O- Last 24 Hours up to 6 AM 07/10/20 05:59 Intake Total 300 ml Output Total 0 ml Balance 300 ml Laboratory Data 24H LABS Laboratory Tests 2 07/10/20 05:42: Nucleated Red Blood Cells % (auto) 0.0, Anion Gap 9, Glomerular Filtration Rate > 60.0, Calcium Level 8.4L, Total Bilirubin 0.5, Aspartate Amino Transf (AST/SGOT) 12, Alanine Aminotransferase (ALT/SGPT) 24, Alkaline Phosphatase 31L, Total Protein 6.2#L, Albumin 3.4#, Albumin/Globulin Ratio 1.2 CBC/BMP Laboratory Tests 07/10/20 05:42 Microbiology Microbiology 07/08/20 Urine Culture - Final, Complete Mayte Mejia MD Jul 10, 2020 13:08
--- NOTE | 2020-07-10 13:18 | DS.PDOC ---
Discharge Summary General Date of Admission Jul 08, 2020 at 21:24 Date of Discharge 07/10/20 Attending Physician: Mayte Mejia MD Discharge Summary HISTORY OF PRESENT ILLNESS: This 20-year-old G2 A1 P1 (8 weeks 2 days), has been having episodes of nausea for the last few weeks that usually resolves as the day goes on. This morning at around 5:30 AM she developed nausea along with vomiting that continued throughout the day. At around 6 PM she developed streaks of blood in the vomit; as time progressed the vomit became dark brown in color. She was unable to keep any liquids, solids and even her SL Zofran down therefore she decided to come to also for evaluation. She reported having chills and upper abdominal and mid chest pain that occurred during and after vomiting. Yesterday evening she had one episode of "diarrhea" when she went to the bathroom and reported having another episode this morning. She denied having fecal incontinence. Denied having fevers, denied eating food that should not cooked, denied having change in the small bowel or the color of her urine, and denied having any pain with urination. JUAN Jiménez discussed the patient's case with OB mohs surgeon/general dermatologist and who recommended admission under the general medicine service. HOSPITAL COURSE: The patient was monitored closely for bleeding, with no additional episodes of hematemesis during her hospital stay. flotation tender helper was consulted for hyperemesis and they gave recommendations. She was kept NPO and later switched to CLD which she tolerated well. She complained of some spotting/bleeding which was discussed with Dr. Love on day of discharge. He did not seemed worried and stated that some bleeding may be normal. She is to call the [facility] after discharge to schedule a follow up appointment for after the weekend. She was discharged on 07/10/20 with her home medications of zofran PRN for incr n. She had not had episode of vomiting since admission. At discharge she also denied chest pain, abdominal pain, fevers, chills. PAST MEDICAL/ SURGICAL HISTORY: D&C 2 months ago after miscarriage. Anxiety SOCIAL HISTORY: She doesn't smoke. She quit drinking when she found that she was . Quit using THC about 2 weeks ago FAMILY HISTORY: Her father has pancreatitis. Her sister has anxiety SUBJECTIVE: Discussed case with Dr. Love (site reliability engineer) who consulted and made suggestions. Toya ent continues to have nausea so stopped CLD and made NPO until patient has not had vomiting for >12H. She denies any bleeding, lightheadedness, vision changes, headache, increased weakness. OBJECTIVE: PHYSICAL EXAMINATION: VITAL SIGNS: Please see below. GEN: slim build/ well developed/ NAD INTEGUMENT: not flushed/ not jaundice HEENT: lips acyanotic /mucus membranes moist and pink / sclera anicteric CVS: RRR/NMRG/ radial pulses intact / no lower extremity edema LUNGS: able to speak full sentences without stopping to take a breath / no coughing / lungs are clear to auscultation bilaterally on room air ABDOMEN: Contour (flat) / soft & not tender with palpation MSK/EXTREMITIES: NCAT / range of motion intact in all 4 extremities NEURO: CN 2-12 are grossly intact / speech is not dysarthric PSYCH: alert and oriented to person place and time/ able to understand and follow all commands LABORATORY DATA: Please see below IMAGING: Transabdominal US: A single live IUP is seen, at 8 weeks 3 days gestational age (based on the CRL). heartbeat is recorded. Appropriate interval growth has occurred over the past 3 weeks. Right ovarian cyst (1.8 cm avg. size). The left ovary is not clearly visualized. No free pelvic fluid is noted." MICROBIOLOGY: Please see below. ASSESSMENT: is a 20-year-old G2, P2 with history of anxiety who presented w c/o of n/v and loose stools who was admitted for evaluation of hematemesis. PLAN: Hematemesis likely 2/2 to hyperemesis gravidarum -No longer having hematemesis and is unlikely that this was 2/2 to Natalia Barry tear. -H/H is stable -Tolerating CLD and advancing diet without issues -Discussed option for antiemetics and she would like to c/w zofran PRN and other home medications. -She will call [facility] after discharge to schedule an early follow up. -She is encouraged to hydrate throughout the day Acute anemia, possibly dilutional 2/2 to IVF hydration vs. anemia 2/2 to -No episodes of bleeding overnight -H/H dropped from admission -PCP, Ob to follow o/p Vaginal bleeding/spotting -Episode this AM, little amount of brown colored discharge, no foul smell -Discussed with Ob -Recent US on admission above -F/u with Ob o/p Anxiety -Stable -c/w home meds DISPOSITION: F/u with site reliability engineer after discharge. TIME SPENT ON DISCHARGE: Greater than 30 minutes. Vital Signs/I&Os Vital Signs Date Time Temp Pulse Resp B/P (MAP) Pulse Ox O2 Delivery O2 Flow Rate FiO2 07/10/20 08:00 98.2 77 16 108/62 (77) 100 Room Air I&O- Last 24 Hours up to 6 AM 07/10/20 05:59 Intake Total 300 ml Output Total 0 ml Balance 300 ml Laboratory Data Labs 24H Laboratory Tests 2 07/10/20 05:42: Nucleated Red Blood Cells % (auto) 0.0, Anion Gap 9, Glomerular Filtration Rate > 60.0, Calcium Level 8.4L, Total Bilirubin 0.5, Aspartate Amino Transf (AST/SGOT) 12, Alanine Aminotransferase (ALT/SGPT) 24, Alkaline Phosphatase 31L, Total Protein 6.2#L, Albumin 3.4#, Albumin/Globulin Ratio 1.2 CBC/BMP Laboratory Tests 07/10/20 05:42 Microbiology Microbiology 07/08/20 Urine Culture - Final, Complete Discharge Medications Scheduled No115/Iron/Folic Acid ( 19 Chewable Tablet) 1 Each Tab.chew, 1 CHW PO QHS, (Reported) Sertraline HCl (Sertraline HCl) 50 Mg Tablet, 50 MG PO QHS, (Reported) Scheduled PRN Doxylamine Succinate (Unisom Sleep Aid) 25 Mg Tablet, 12.5 MG PO BID PRN for NAUSEA OR VOMITING, (Reported) Ondansetron HCl (Ondansetron HCl) 4 Mg Tablet, 4 MG PO Q6H PRN for NAUSEA OR VOMITING, (Reported) Pyridoxine HCl (Vitamin B6) (Vitamin B-6) 25 Mg Tablet, 12.5 MG PO BID PRN for NAUSEA OR VOMITING, (Reported) Allergies Coded Allergies: No Known Allergies (Unverified , 06/20/20) Mayte Mejia MD Jul 10, 2020 13:18
[2020-07-10] MEDS ORDERED: ONDA-83 PO (15:42)
== END 2020-07-10 15:57 | disposition home or self-care (01) | DRG 833 ==
LOC: M ED 18:15 → M ED INP 21:24 → ENRESERV 23:51 → M PCU 07-09 00:29
PROVIDERS: ADMIT Internal Medicine; ATTEND Internal Medicine
DX: O21.0 Mild hyperemesis gravidarum (principal); Z3A.08 8 weeks gestation of pregnancy; E87.6 Hypokalemia; O99.281 Endocrine, nutritional and metabolic diseases complicating pregnancy, first trimester; O99.011 Anemia complicating pregnancy, first trimester; D64.9 Anemia, unspecified; Z20.828 Contact with and (suspected) exposure to other viral communicable diseases

== ENCOUNTER 2020-12-02 15:19 | Outpatient (CLI) | payer OTHER ==
[~2020-12-02] VITALS: Ht 152.4 cm; Wt 47.8 kg
[~2020-12-02 15:19] MED LIST changes: +ONDA-83 PO; +PREN29CH2 PO; +SERT50TA29 PO
--- NOTE | 2020-12-02 16:02 | IPNPDOC ---
Obstetrical Progress Note Date of Service December 02, 2020 Subjective 20 yo 29w1d with GINO of 16 FEB 2021 presents to L&D with complaints of pelvic pressure since yesterday. She denies leaking of fluid, vaginal bleeding, contractions, and reports positive movement. Objective Sterile speculum exam with no pooling of fluid, blood, or discharge noted in the vaginal vault. Cervix appears visually closed. Cervical exam: Long, thick, closed, posterior, and high 20 minutes of face to face time spent with the patient in triage to assess and discuss plan of care Assessment Heart Rate (FHR): 145 Variability: Moderate Accelerations: Present Decelerations: None Tocometer Contractions: Yes Strength: other (Occasional and uterine irritability noted) Sterile Vaginal Examination Dilation: None Assessment and Plan Age: 20 : 2 Term: 0 Pre-term: 0 Abortions: 1 Livin Weeks & Days 29w1d Status: Reassuring Anticipate: Other (Discharge to home, certified not in labor) Additional Comments FKC and PTL precautions discussed Recommended to keep all future appointments with [facility] ATTENDANT Recommended to hydrate well with 3-4 liters of water per day Recommended to return to L&D if symptoms worsen or persist RENETTA HODGSON CNM December 02, 2020 16:02
== END 2020-12-02 16:04 | disposition home or self-care (01) ==
LOC: M LDO 15:19
PROVIDERS: ATTEND Registered Nurse Maternal Newborn
DX: O26.893 Other specified pregnancy related conditions, third trimester (principal); R10.2 Pelvic and perineal pain; Z3A.29 29 weeks gestation of pregnancy
CPT/HCPCS: G0378; G0463

== ENCOUNTER 2021-02-07 16:46 | Outpatient (CLI) | payer OTHER ==
[~2021-02-07] VITALS: Ht 152.4 cm; Wt 55.4 kg
[2021-02-07] MEDS ORDERED: FERR325T3 PO (17:00)
[2021-02-07 17:09] VITALS: BP 123/76
[2021-02-07 18:03] VITALS: BP 117/71
--- NOTE | 2021-02-07 18:11 | IPNPDOC ---
Obstetrical Progress Note Date of Service Feb 07, 2021 Subjective Ms. Saez is a 20yo at 38+5 presents for a labor check. She reports regular contractions. She denied vb, lof, decreased fm. She denied a 12 point ros. Objective Vital Signs Date Time Temp Pulse Resp B/P (MAP) Pulse Ox O2 Delivery O2 Flow Rate FiO2 02/07/21 17:09 98.0 83 18 123/76 (92) Assessment Variability: Moderate Accelerations: Positive Decelerations: None Heart Rate Tracing: Category I Tocometer Contractions: Yes Frequency: irregular Sterile Vaginal Examination Dilation: 1cm Cervical Consistency: Firm Cervical Position: Posterior Postion/Presentation: Cephalic presentation (by US) Assessment and Plan Status: Reassuring Additional Comments Ms. Saez is a 20yo at 38+5 presents for a labor check. VS normal. CAT I NST reactive. SVE 50/-2. TAUS with visually appropriate fluid, cephalic, +FM. Overall reassuring, primip in early labor, eminent active labor is unlikely at this time. Educated on routine OB return precautions. Otherwise to follow up at next [facility]. PIPPA ASTUDILLO DO Feb 07, 2021 18:11
== END 2021-02-07 18:15 | disposition home or self-care (01) ==
LOC: M LDO 16:46
PROVIDERS: ATTEND Obstetrics & Gynecology
DX: O47.1 False labor at or after 37 completed weeks of gestation (principal); Z3A.38 38 weeks gestation of pregnancy
CPT/HCPCS: 59025; 76815; G0463

== ENCOUNTER 2021-02-08 05:47 | Inpatient (IN) | payer OTHER ==
[~2021-02-08] VITALS: Ht 152.4 cm; Wt 61.0 kg
[2021-02-08] VITALS (9 sets, daily range): BP systolic 110–133; BP diastolic 62–86
[~2021-02-08 05:47] MED LIST changes: +FERR325T3 PO
[2021-02-08 06:43] LABS: HEMATOCRIT 32.9 % (36.0-47.0); HEMOGLOBIN 11.5 g/dl (12.0-15.5); MEAN CORPUSCULAR VOLUME 94.5 fl (80.0-96.0); PLATELET COUNT, AUTOMATED 210 10^3/uL (150-450); RED BLOOD COUNT 3.48 10^6/uL (4.00-5.40); WHITE BLOOD COUNT 9.7 10^3/uL (4.0-10.0)
[2021-02-08] MEDS ORDERED: LIDOCAINE 1% MDV 20ML VIAL INFIL PRN (06:55)
[2021-02-08] MEDS ORDERED: OXYTOCIN DRIP 30 UNITS in IV 1 EA IV PRN (06:55)
--- NOTE | 2021-02-08 08:01 | HPEPDOC ---
Obstetrical History & Physical General Date of Admission Feb 08, 2021 at 06:08 History of Present Illness Ms. Saez is a 20yo at 38+6 who presents with gross SROM at 0510, clear, no odors and regular painful contractions. She denied VB and decreased FM. She denied otherwise a 12 point ROS. Antepartum Course Pre- weight (lbs.): 90 Admission Weight (lbs.): 121 Change in Weight (lbs.): 31 Past Medical History Past Obstetrical History : Past Obstetrical History: Multigravida (G1 2019 11+2 SAB/D+C) [employer] History: No pertinent history Past Medical History Medical History migraines with aura anxiety anemia Surgical History: Dilatation and Curettage Family History Significant Family History: No pertinent family hx Social History Marital Status: Family situation: Spouse/partner home Psychosocial History: Anxiety * Smoker: former Smoker Alcohol: Denies Drugs: denies Imunizations Tdap status: current Influenza Status: needs Allergies Coded Allergies: No Known Allergies (Unverified , 06/20/20) Medications Scheduled No115/Iron/Folic Acid ( 19 Chewable Tablet) 1 Each Tab.chew, 1 CHW PO QHS Scheduled PRN Doxylamine Succinate (Unisom Sleep Aid) 25 Mg Tablet, 12.5 MG PO BID PRN for NAUSEA OR VOMITING Ondansetron HCl (Ondansetron HCl) 4 Mg Tablet, 4 MG PO Q6H PRN for NAUSEA OR VOMITING Pyridoxine HCl (Vitamin B6) (Vitamin B-6) 25 Mg Tablet, 12.5 MG PO BID PRN for NAUSEA OR VOMITING Miscellaneous Medications Ferrous Sulfate (Ferrous Sulfate) 325 Mg Tablet.dr, 325 MG PO Physical Examination Physical Examination GENERAL: Alert and oriented times three. BREAST: . ABDOMEN: Gravid and non-tender to touch. FETUS: Is vertex (VTX) by sterile vaginal examination (SVE), fetus is vertex (VTX) by US. HEART RATE: Regular rate and rhythm. LUNGS: Clear to auscultation (CTA). EXTREMITIES: No edema. No clonus. Vital Signs/I&O Vital Signs Date Time Temp Pulse Resp B/P (MAP) Pulse Ox O2 Delivery O2 Flow Rate FiO2 02/08/21 07:34 99.2 107 18 126/86 (99) Room Air Laboratory Data 24H LABS Laboratory Tests 2 02/08/21 06:16: Serology Scanned Report Hepatitis B Testing 02/08/21 06:26: Nucleated Red Blood Cells % (auto) 0.0 CBC/BMP Laboratory Tests 02/08/21 06:26 Urine Culture: No Growth Pertinent Laboratoy Data Blood Type: A+ RBC Antibody Screen: Negative HIV: Negative Hepatitis B: Negative Rapid Plasma Reagin: Nonreactive Rubella: Immune Varicella: Immune Chlamydia/Gonorrhea: Negative Group B Streptococcus: Negative Quad Screen Test: Negative Glucose Tolerance Test: 98 Anatomy Ultrasound Placenta Location: Posterior Normal Anatomy: Yes Vaginal Examination Dilation: 2cm Effacement: 70% Station: -1 Cervical Consistency: Soft Cervical Position: Anterior Presentation: Cephalic presentation (by US) Assessment Heart Rate (FHR): 145 Variability: Moderate Accelerations: Positive Decelerations: Late (x1 during repositioning, now resolved) Tocometer Contractions: Yes Frequency: regular Multi-drug resistant Organism: No history of MDRO Assessment/Plan Assessment Ms. Saez is a 20yo at 38+6 who presents with gross SROM at 0510, clear, no odors and regular painful contractions. Her SVE was 1cm on admission and 2cm on repeat exam. CAT I NST reactive. VS normal. APC 1. anxiety 2. anemia last H/H 05/24 Rh pos, GBS neg, ceph by US, EFW 3400, placenta posterior Plan Admit and orient, plan for 2h recheck if unchanged will start pitocin augme ntation Administrative Specialist and consent. Diet: clears Group B Streptococcus (GBS) [negative]. Labs and intravenous (IV) per unit protocol. Counseled on Pitocin and induction of labor (IOL). Lactated Ringers (LR): PRN Anticipate [normal spontaneous delivery ()]. C-S as appropriate. PIPPA ASTUDILLO DO Feb 08, 2021 08:00
--- NOTE | 2021-02-08 09:17 | IPNPDOC ---
Obstetrical Progress Note Date of Service Feb 08, 2021 Subjective To room for prolonged deceleration. Objective Vital Signs Date Time Temp Pulse Resp B/P (MAP) Pulse Ox O2 Delivery O2 Flow Rate FiO2 02/08/21 07:34 99.2 107 18 126/86 (99) Room Air Assessment Heart Rate (FHR): 140 Variability: Moderate Accelerations: Positive Decelerations: Recurrant and Prolonged Heart Rate Tracing: Category I Tocometer Contractions: Yes Frequency: regular Sterile Vaginal Examination Dilation: 3 cm Effacement (%): 90% Station: -1 Cervical Consistency: Soft Cervical Position: Posterior Postion/Presentation: Cephalic presentation (by exam) Assessment and Plan Additional Comments Prolonged deceleration noted. Repositioning and oxygen applied with return to baseline and moderate variability. Has otherwise been CAT I and reactive. SVE /-1. Will continue to [facility] monitoring. PIPPA ASTUDILLO DO Feb 08, 2021 09:17
[2021-02-08] MEDS ORDERED: PROMETHAZINE INJ 25 MG/ML VIAL (J2550) IV ONE (09:45)
[2021-02-08] MEDS ORDERED: BUTORPHANOL 2 MG/ML INJ (J0595) IV ONE (09:45)
[2021-02-08] MEDS ORDERED: LR 1,000 ML IV SCH ×2 (10:05→11:25)
[2021-02-08] MEDS ORDERED: OXYTOCIN DRIP 30 UNITS in IV 1 EA IV SCH (11:25)
--- NOTE | 2021-02-08 11:28 | IPNPDOC ---
Obstetrical Progress Note Date of Service Feb 08, 2021 Subjective Interval recheck. Objective Vital Signs Date Time Temp Pulse Resp B/P (MAP) Pulse Ox O2 Delivery O2 Flow Rate FiO2 02/08/21 11:02 98.1 73 16 128/64 (85) High Flow Mask 02/08/21 09:59 10.0 Assessment Heart Rate (FHR): 120 Variability: Moderate Accelerations: Positive Decelerations: None Heart Rate Tracing: Category II Tocometer Contractions: Yes Frequency: regular Sterile Vaginal Examination Effacement (%): 90% Station: -1 Cervical Consistency: Soft Cervical Position: Middle Postion/Presentation: Cephalic presentation (by exam) Assessment and Plan Additional Comments Patient is unchanged on 2h recheck and ruptured. Will start pitocin for augmentation of labor. NST CAT I reactive. PIPPA ASTUDILLO DO Feb 08, 2021 11:28
--- NOTE | 2021-02-08 14:55 | IPNPDOC ---
Obstetrical Progress Note Date of Service Feb 08, 2021 Objective Vital Signs Date Time Temp Pulse Resp B/P (MAP) Pulse Ox O2 Delivery O2 Flow Rate FiO2 02/08/21 13:03 99.0 75 16 128/67 (87) Room Air 02/08/21 09:59 10.0 Assessment Variability: Moderate Accelerations: Positive Decelerations: Variable Heart Rate Tracing: Category II Tocometer Contractions: Yes Frequency: regular Sterile Vaginal Examination Dilation: 9 cm Effacement (%): 90% Station: 0 Cervical Position: Anterior Postion/Presentation: Cephalic presentation Assessment and Plan Anticipate: Vaginal Delivery Additional Comments CAT II NST for intermittent variable decels but overall moderate variability with good return to baseline and reassuring. SVE AL/90/0. Attempt to reduce lip unsuccessful. Will reassess in 1-2h or sooner if clinically indicated. PIPPA ASTUDILLO DO Feb 08, 2021 14:55
[2021-02-08] MEDS ORDERED: ACETAMINOPHEN 500 MG TAB PO PRN (15:40)
[2021-02-08] MEDS ORDERED: IBUPROFEN 600MG TAB PO PRN (15:40)
[2021-02-08] MEDS ORDERED: ACETAMINOPHEN TAB 650MG DOSE (2X325MG) PO PRN (15:40)
[2021-02-08] MEDS ORDERED: DOCUSATE SODIUM 100MG CAPSULE PO PRN (15:40)
--- NOTE | 2021-02-08 15:40 | DNPDOC ---
[facility] Delivery Note Delivery Note DATE OF DELIVERY: 02/08/21 PREDELIVERY DIAGNOSIS: 39+6/7 weeks' gestation and labor. POST DELIVERY DIAGNOSIS: Delivered. PROCEDURE: Spontaneous vaginal delivery EVENTS ASSISTANT: Dr. Maximo Astudillo DO ANESTHESIA: local lidocaine injection ESTIMATED BLOOD LOSS: 100 mL. FINDINGS: 3080g infant, Score 8/8, nuchal cord times 0. DELIVERY SUMMARY: Ms. Xie is a 21yo at 39+6 presented initially with ROM and required augmentation of labor with pitocin. She progressed to c/c/+3 and with good maternal effort delivered the head followed by the body without difficulty. The baby had spontaneous movement and cry. Cord clamping was delayed 60s. The cord was clamped and cut by the FOB. Cord blood and gasses were obtained. The placenta was delivered via emily downward traction and was in- tact. A first degree perineal laceration was repaired with 2-0 vicryl in the usual fashion and was hemostatic. Small bilateral labial abrasions did not require repair. The uterus was firm and bleeding was scant. The sponge, lap and needle counts were correct x2. There were no complications. MAXIMO ASTUDILLO DO Feb 08, 2021 15:33 MAXIMO ASTUDILLO DO Feb 08, 2021 15:40
[2021-02-08 15:57] LABS: CORD GAS ABE V -5.9; CORD GAS HCO3 V 19.5 MEQ/L; CORD GAS O2 SAT V 61.6 %; CORD GAS PCO2 V 38.1 mmHg; CORD GAS PH V 7.327 UNITS; CORD GAS PO2 V 25.7 mmHg; CORD GAS SBC V 18.9 MEQ/L; CORD GAS TCO2 V 20.7 MEQ/L
[2021-02-08 15:58] LABS: CORD GAS ABE A -7.4; CORD GAS HCO3 A 20.7 MEQ/L; CORD GAS PCO2 A 51.6 mmHg; CORD GAS PH A 7.222 UNITS; CORD GAS PO2 A 31.9 mmHg; CORD GAS SBC A 17.9 MEQ/L; CORD GAS TCO2 A 22.3 MEQ/L
[2021-02-09 06:00] VITALS: BP 109/51
--- NOTE | 2021-02-09 07:02 | IPNPDOC ---
Progress Note Date of Service: Feb 09, 2021 Day#: 1 Progress Note Ms. Saez is a 20yo PPD1 after uncomplicated after arriving with SROM requiring augmentation of labor with Pitocin. 3080g , Score 8/8. She has been ambulating, voiding spontaneously without issue and tolerating regular diet. Breast feeding without issue. Reports lochia is like a normal period. Patient is ambulating well. Reports some cramping with . Denies any pain. Voiding and stooling without difficulty. APC 1. anxiety 2. anemia last H/H 05/24 OBJECTIVE: VITAL SIGNS: Within normal limits, afebrile. Alert and oriented times three. No increased wob Heart rate: non-tachycardic Abdomen: Fundus firm at U-2. Soft, NTTP. [Minimal] lochia. ASSESSMENT: Ms. Saez is a 20yo PPD1 after uncomplicated after arriving with SROM requiring augmentation of labor with Pitocin. 3080g , Score 8/8. Vitals within normal limits, afebrile, hemodynamically stable with no evidence of infection. PLAN: 1. Discharge to home likely tomorrow 2. Tylenol and Motrin for pain. 3. Encourage breast feeding and ambulation. 4. desires minipill for contraception 5. Routine PP visit in 6 weeks in clinic. 6. Discussed return precautions at length and activity limitations to include pelvic rest VS, I&O, 24H, Fishbone Vital Signs/I&O Vital Signs Date Time Temp Pulse Resp B/P (MAP) Pulse Ox O2 Delivery O2 Flow Rate FiO2 02/09/21 06:00 99.0 80 14 109/51 (70) 02/08/21 14:53 Room Air 02/08/21 09:59 10.0 I&O- Last 24 Hours up to 6 AM 02/09/21 06:00 Output Total 100 ml Balance -100 ml Laboratory Data 24H LABS Laboratory Tests 2 02/08/21 15:39: Cord Arterial Blood pH 7.222, Cord Arterial Blood PCO2 51.6, Cord Arterial Blood PO2 31.9, Cord Arterial Blood HCO3 20.7, Cord Arterial Blood Total CO2 22.3, Cord Arterial Blood Base Excess -7.4, Cord Arterial Base Excess (Standard 17.9, Cord Arterial Bld Oxygen Saturation 67.0, Cord Venous Blood pH 7.327, Cord Venous Blood PCO2 38.1, Cord Venous Blood PO2 25.7, Cord Venous Blood HCO3 19.5, Cord Venous Blood Total CO2 20.7, Cord Venous Base Excess (Actual) -5.9, Cord Venous Base Excess (Standard) 18.9, Cord Venous Blood Oxygen Saturation 61.6 PIPPA ASTUDILLO DO Feb 09, 2021 07:02
[2021-02-09] MEDS: IBUPROFEN 800 MG TAB PO PRN ×2 (07:15→18:00)
[2021-02-09] MEDS: PRENATAL VITAMINS CHEWABLE TABLET PO SCH (07:15)
[2021-02-09 17:29] VITALS: BP 117/60
[2021-02-10] MEDS: IBUPROFEN 800 MG TAB PO PRN (05:44)
[2021-02-10 05:57] VITALS: BP 126/75
--- NOTE | 2021-02-10 06:16 | OBDS ---
[facility] Obstetrical Discharge Sum. Obstetrical Discharge Summary Labor DELIVERY SUMMARY: Ms. Xie is a 21yo at 39+6 presented initially with ROM and required augmentation of labor with pitocin. She progressed to c/c/+3 and with good maternal effort delivered the head followed by the body without difficulty. The baby had spontaneous movement and cry. Cord clamping was delayed 60s. The cord was clamped and cut by the FOB. Cord blood and gasses were obtained. The placenta was delivered via emily downward traction and was in- tact. A first degree perineal laceration was repaired with 2-0 vicryl in the usual fashion and was hemostatic. Small bilateral labial abrasions did not require repair. The uterus was firm and bleeding was scant. The sponge, lap and needle counts were correct x2. There were no complications. Delivery Ms. Saez is a 20yo G2 now P1011 PPD2 after uncomplicated admitted for SROM requiring augmentation of labor with Pitocin. Delivered a 3080g infant, Score 8/8. She has been ambulating, voiding spontaneously without issue and tolerating regular diet. Breast feeding without issue. Reports lochia is like a normal period. Reports some cramping with . course has been uncomplicated APC 1. anxiety 2. anemia last H/H 05/24 OBJECTIVE: day of discharge exam VITAL SIGNS: Within normal limits, afebrile. Alert and oriented times three. No increased wob Heart rate: non-tachycardic Abdomen: Fundus firm at U-2. Soft, NTTP. Vital Signs Date Time Temp Pulse Resp B/P (MAP) Pulse Ox O2 Delivery O2 Flow Rate FiO2 02/10/21 05:57 98.7 72 17 126/75 (92) 99 Room Air 02/09/21 17:29 98.2 66 15 117/60 (79) 100 Current Medications Medications (Trade) Dose Ordered Sig/Adi Route PRN Reason Start Time Stop Time Status Last Admin Dose Admin Acetaminophen (Tylenol Tab) 1,000 mg Q6HP PRN PO PAIN LEVEL 6-10 02/08/21 15:40 02/09/21 21:03 1,000 MG Ibuprofen (Advil) 600 mg Q6HP PRN PO PAIN LEVEL 1-5 02/08/21 15:40 02/08/21 18:20 600 MG Oxytocin 30 units/ IV Miscellaneous Supplies 500 ml @ 0 mls/hr DRIP IV 02/08/21 11:25 02/08/21 12:07 2 MLS/HR Prenat Multivit/ Blood Bank Specialist/Iron/Folic Ac ( Vitamins) 1 tab DAILY PO 02/09/21 09:00 02/09/21 07:15 1 TAB A/P, Post Course List any complications Admission diagnosis: SROM, labor. Discharge diagnosis: Delivered (vaginal) Condition at Discharge: stable Discharge Instructions: follow up 6 weeks Activity: no lifting >20lbs and encourage pelvic rest until visit Diet: regular Medications: tylenol and motrin prn pain. minipill for contraception Follow-up: 6 weeks YUDY JONES M.D. Feb 10, 2021 06:16
[2021-02-10] MEDS: PRENATAL VITAMINS CHEWABLE TABLET PO SCH (08:04)
== END 2021-02-10 10:50 | disposition home or self-care (01) | DRG 807 ==
LOC: M LDO 05:47 → M LDI 06:08 → M OBS 15:30
PROVIDERS: ADMIT Obstetrics & Gynecology; ATTEND Obstetrics & Gynecology
PROC: 10E0XZZ Delivery of Products of Conception, External Approach (ICD-10-PCS; principal; 2021-02-08)
PROC: 0HQ9XZZ Repair Perineum Skin, External Approach (ICD-10-PCS; 2021-02-08)
DX: O99.02 Anemia complicating childbirth (principal); Z37.0 Single live birth; D64.9 Anemia, unspecified; Z3A.38 38 weeks gestation of pregnancy; O70.0 First degree perineal laceration during delivery; O76 Abnormality in fetal heart rate and rhythm complicating labor and delivery

== ENCOUNTER 2021-03-12 17:20 | Emergency (ER) | payer OTHER ==
[~2021-03-12] VITALS: Ht 152.4 cm; Wt 45.8 kg
[2021-03-12 18:17] LABS: BASO % 0.1 % (0.0-1.0); EOS # 0.1 10^3/uL (0.0-0.5); EOS % 0.6 % (0.0-3.0); HEMATOCRIT 40.6 % (36.0-47.0); HEMOGLOBIN 13.6 g/dl (12.0-15.5); LYMPH # 0.9 10^3/uL (1.5-5.0); LYMPH % 5.5 % (24.0-44.0); MEAN CORPUSCULAR HEMOGLOBIN 32.2 pg (27.0-33.0); MEAN CORPUSCULAR HGB CONC 33.5 g/dl (32.0-36.5); MEAN CORPUSCULAR VOLUME 96.2 fl (80.0-96.0); MONO # 0.8 10^3/uL (0.0-0.8); MONO % 5.1 % (2.0-8.0); NEUTROPHILS # 14.2 10^3/uL (1.5-8.5); PLATELET COUNT, AUTOMATED 245 10^3/uL (150-450); RED BLOOD COUNT 4.22 10^6/uL (4.00-5.40); WHITE BLOOD COUNT 16.2 10^3/uL (4.0-10.0)
[2021-03-12 18:36] LABS: BLOOD UREA NITROGEN 17 MG/DL (7-18); CALCIUM LEVEL 9.2 MG/DL (8.5-10.1); CARBON DIOXIDE LEVEL 23 MEQ/L (21-32); CHLORIDE LEVEL 106 MEQ/L (98-107); CREATININE FOR GFR 0.58 MG/DL (0.55-1.30); GLOMERULAR FILTRATION RATE > 60.0 (>60); GLUCOSE, FASTING 100 MG/DL (70-100); POTASSIUM SERUM 3.7 MEQ/L (3.5-5.1); SODIUM LEVEL 138 MEQ/L (136-145)
[2021-03-12] MEDS ORDERED: NS 1,000 ML IV ONE (19:50)
[2021-03-12] MEDS ORDERED: IBUPROFEN 800 MG TAB PO ONE (19:50)
[2021-03-12] MEDS ORDERED: AMPICILLIN SOD/SULBACTAM SOD 3 GM in D5W MINI-BAG PLUS 100 ML IV ONE (20:20)
[2021-03-12] MEDS ORDERED: ACETAMINOPHEN 500 MG TAB PO ONE (21:15)
[2021-03-12 22:39] VITALS: BP 102/56
[2021-03-12] MEDS ORDERED: DICL500C PO (22:47)
== END 2021-03-12 22:58 | disposition left against medical advice (07) ==
LOC: M ED 17:20
DX: O91.22 Nonpurulent mastitis associated with the puerperium (principal); R65.10 Systemic inflammatory response syndrome (SIRS) of non-infectious origin without acute organ dysfunction; G43.909 Migraine, unspecified, not intractable, without status migrainosus; K21.9 Gastro-esophageal reflux disease without esophagitis; D50.9 Iron deficiency anemia, unspecified